=== PATIENT | female | born 1955 | race African-American/Black ===

== ENCOUNTER 2016-10-08 09:46 | Inpatient (IN) | payer OTHER ==
[~2016-10-08] VITALS: Ht 149.9 cm; Wt 67.2 kg
[~2016-10-08 09:46] MED LIST: DEPAKOTE250 MG PO; DEPAKOTE500 MG PO; LOPRESSOR25 MG PO; NEURONTIN300 MG PO; NORCO 5/3251 TABLET PO; TOPAMAX100 MG PO; TRAZODONE HCL50 MG PO; VALIUM5 MG PO
[2016-10-08 10:06] VITALS: BP 116/67
[2016-10-08 20:22] VITALS: BP 134/66
[2016-10-08 23:40] VITALS: BP 120/63
[2016-10-09 03:51] VITALS: BP 130/70
[2016-10-09 07:35] VITALS: BP 118/67
[2016-10-09 15:51] VITALS: BP 111/56
[2016-10-10 01:02] VITALS: BP 129/61
[2016-10-10 04:23] VITALS: BP 120/58
[2016-10-10 07:55] VITALS: BP 108/65
[2016-10-10] MEDS ORDERED: HYDROCODON-ACE1 EAC7 PO (08:46)
[2016-10-10] MEDS ORDERED: TIZANIDINE HCL4 MG PO (08:46)
[2016-10-10 12:23] VITALS: BP 129/88
== END 2016-10-10 13:13 | disposition home or self-care (01) | DRG 460 ==
LOC: 2SOUTH 09:46 → 3EAST 19:47
PROC: 0SG00AJ Fusion of Lumbar Vertebral Joint with Interbody Fusion Device, Posterior Approach, Anterior Column, Open Approach (ICD-10-PCS; principal; 2016-10-08)
PROC: 0SG30AJ Fusion of Lumbosacral Joint with Interbody Fusion Device, Posterior Approach, Anterior Column, Open Approach (ICD-10-PCS; principal; 2016-10-08)
DX: M43.16 Spondylolisthesis, lumbar region (principal); M41.9 Scoliosis, unspecified; G40.909 Epilepsy, unspecified, not intractable, without status epilepticus; M48.06 Spinal stenosis, lumbar region; M54.16 Radiculopathy, lumbar region; G89.29 Other chronic pain; M46.96 Unspecified inflammatory spondylopathy, lumbar region; M47.9 Spondylosis, unspecified; M51.36 Other intervertebral disc degeneration, lumbar region; Z68.29 Body mass index [BMI] 29.0-29.9, adult; Z90.49 Acquired absence of other specified parts of digestive tract
CPT/HCPCS: 72100; 76000; 86900; 86901; J0330; J0690; J1100; J1170; J1580; J2250; J2405; J2710; J2930; J3010; J3370; J3480; J7120; S0020

== ENCOUNTER 2016-11-15 14:29 | Inpatient (IN) | payer OTHER ==
[~2016-11-15] VITALS: Ht 149.9 cm; Wt 58.7 kg
[~2016-11-15 14:29] MED LIST changes: +HYDROCODON-ACE1 EAC7 PO; +TIZANIDINE HCL4 MG PO
[2016-11-15 16:11] VITALS: BP 123/71
[2016-11-15 17:10] LABS: ANION GAP 6 MEQ/L (2-14); CHLORIDE 106 MEQ/L (99-109); GFR ESTIMATE (CALCULATED) > 59 mL/min/; GLUCOSE 77 mg/dL (70-99); POTASSIUM 3.5 MEQ/L (3.7-5.4); SAMPLE HEMOLYSIS CHECK 0; SAMPLE ICTERIC CHECK 0; SAMPLE LIPEMIA CHECK 0; SODIUM 142 MEQ/L (136-147); UREA NITROGEN (BUN) 11 mg/dL (9-23)
[2016-11-15 18:39] LABS: EOSINOPHIL (%) 2.2 % (0-5); EOSINOPHIL COUNT 0.2 K/uL (0-0.3); HEMATOCRIT 36.6 % (36.0-46.0); IMMATURE GRANULOCYTE (%) 0.2 % (0.0-0.7); INSTRUMENT ABS NEUTROPHIL CT 3.8 K/uL; LYMPHOCYTE COUNT 3.7 K/uL (1.0-2.8); MCH 31.8 PG (29.0-34.0); MCHC 31.7 G/DL (30.0-36.0); MCV 100.3 FL (83-99); MEAN PLAT.VOLUME 10.9 uM^3 (9.5-12.4); MONOCYTE (%) 9.9 % (3-12); MONOCYTE COUNT 0.9 K/uL (0-0.8); NEUTROPHIL (%) 44.1 % (45-76); NEUTROPHIL COUNT 3.8 K/uL (1.8-6.4); PLATELET COUNT 380 K/uL (156-360); RBC DIS.WIDTH-CV 14.1 % (11.8-14.6); RBC DIS.WIDTH-SD 51.9 % (39-53); RED BLOOD COUNT 3.65 M/uL (3.80-5.20); WHITE BLOOD COUNT 8.6 K/uL (4.1-10.2)
[2016-11-15 19:06] LABS: ERTH.SED.RATE 67 MM/HR (0-30)
[2016-11-15 23:38] VITALS: BP 133/68
[2016-11-16 08:13] VITALS: BP 107/61
[2016-11-16 13:04] VITALS: BP 136/75
[2016-11-16 15:21] VITALS: BP 127/73
[2016-11-16 20:00] VITALS: BP 144/66
[2016-11-16 23:27] VITALS: BP 122/70
[2016-11-17] VITALS (7 sets, daily range): BP systolic 108–164; BP diastolic 59–86
[2016-11-18 07:50] VITALS: BP 164/82
[2016-11-18 08:14] VITALS: BP 164/82
[2016-11-18 11:40] VITALS: BP 152/78
[2016-11-18 15:54] VITALS: BP 129/72
[2016-11-18 21:37] VITALS: BP 160/86
[2016-11-18 23:11] VITALS: BP 135/80
[2016-11-19] VITALS (8 sets, daily range): BP systolic 125–167; BP diastolic 65–94
[2016-11-20] VITALS (8 sets, daily range): BP systolic 128–169; BP diastolic 69–92
[2016-11-21 03:35] VITALS: BP 121/74
[2016-11-21 07:57] VITALS: BP 128/71
[2016-11-21 16:14] VITALS: BP 123/65
[2016-11-22 00:15] VITALS: BP 113/62
[2016-11-22] MEDS ORDERED: HYDROCODON-ACE1 EAC7 PO (07:26)
[2016-11-22 08:00] VITALS: BP 184/90
[2016-11-22 09:18] VITALS: BP 163/87
[2016-11-22 15:49] VITALS: BP 142/78
== END 2016-11-22 18:34 | disposition home or self-care (01) | DRG 902 ==
LOC: 3EAST 14:29 → ENRESERV 14:34 → 3EAST 15:27
PROVIDERS: Neurological Surgery; Physician Assistant Surgical
PROC: 0HB6XZZ Excision of Back Skin, External Approach (ICD-10-PCS; principal; 2016-11-16)
PROC: 0JB70ZZ Excision of Back Subcutaneous Tissue and Fascia, Open Approach (ICD-10-PCS; 2016-11-17)
DX: T81.30XA Disruption of wound, unspecified, initial encounter (principal); T81.4XXA Infection following a procedure, initial encounter; G40.909 Epilepsy, unspecified, not intractable, without status epilepticus; I10 Essential (primary) hypertension; R56.9 Unspecified convulsions; K57.92 Diverticulitis of intestine, part unspecified, without perforation or abscess without bleeding; Z90.49 Acquired absence of other specified parts of digestive tract; G83.4 Cauda equina syndrome; R26.2 Difficulty in walking, not elsewhere classified; L89.159 Pressure ulcer of sacral region, unspecified stage; M43.10 Spondylolisthesis, site unspecified; M48.07 Spinal stenosis, lumbosacral region
CPT/HCPCS: 76937; 80048; 80202; 85025; 85651; 86140; 87040; 87070; 87075; 87077; 87186; 87205; 97530 GO; 97530 GP; J0692; J0696; J1030; J1040; J1100; J1170; J1580; J2250; J2405; J2543; J2930; J3010; J3370; J3480; J7030; J7050; S0020